=== PATIENT | female | born 1955 | race Caucasian/White ===

== ENCOUNTER 2024-04-14 19:18 | Emergency (ER) | payer MEDICARE ==
[2024-04-14] MEDS ORDERED: COZAAR 50MG50 MG/TAB PO (19:37)
[2024-04-14] MEDS ORDERED: LIPITOR20 M2 PO (19:37)
[2024-04-14] MEDS ORDERED: NORCO 325 MG-51 TA1 PO (21:39)
[2024-04-14] MEDS ORDERED: Home HYDROcodone/Acetaminophen 5/325 MG #4 TABS/PACK PO ONE (21:45)
[2024-04-14 21:53] VITALS: BP 144/75
== END 2024-04-14 21:53 | disposition home or self-care (01) ==
LOC: ED 19:18
DX: S42.255A Nondisplaced fracture of greater tuberosity of left humerus, initial encounter for closed fracture (principal); W01.0XXA Fall on same level from slipping, tripping and stumbling without subsequent striking against object, initial encounter; Y93.01 Activity, walking, marching and hiking; Y92.090 Kitchen in other non-institutional residence as the place of occurrence of the external cause